=== PATIENT | female | born 1980 | race Caucasian/White ===

== ENCOUNTER → 2022-07-06 10:34 | Outpatient (CLI) | payer BC, SELFPAY ==
--- NOTE | ~2022-07-06 | MM_ITS ---
EXAMINATION: MM screening ivan BI w juan david HISTORY: Screening mammogram TECHNIQUE: Craniocaudal and mediolateral oblique 3-D tomosynthesis images were obtained and synthetic 2-D images were generated. CAD analysis was submitted and interpreted. COMPARISON: None, baseline BREAST PARENCHYMAL COMPOSITION: The breasts are extremely dense, which lowers the sensitivity of mamm ography. FINDINGS: No suspicious mass, calcification, or architectural distortion are identified in either elba ast to suggest malignancy. IMPRESSION: 1. No mammographic evidence of malignancy. 2. Recommend routine screening mammography in one year. BI-RADS Category 1: Negative Reviewed, dictated and finalized at location A.
== END ==
PROVIDERS: PCP Physician Assistant Medical; Visit Provider Advanced Practice Midwife
DX: Z12.31 Encounter for screening mammogram for malignant neoplasm of breast (principal)
CPT/HCPCS: 77063; 77067

== ENCOUNTER 2022-11-11 14:58 | Outpatient (CLI) | payer BC, SELFPAY ==
--- NOTE | ~2022-11-11 | MMUS_ITS ---
EXAMINATION: MM diagnostic ivan BI w juan david, US breast BI complete HISTORY: Left breast lump TECHNIQUE: Bilateral full field and spot ML, MLO and CC 3-D tomosynthesis images were performed and s ynthetic 2-D images were generated. CAD analysis was submitted and interpreted. High resolution compl ete bilateral breast ultrasound examination including all 4 quadrants and subareolar areas was perfor med. COMPARISON: 07/06/2022 bilateral screening mammogram BREAST PARENCHYMAL COMPOSITION: The breasts are extremely dense, which lowers the sensitivity of mamm ography. FINDINGS: MAMMOGRAPHIC FINDINGS: Extremely dense fibroglandular stroma throughout both breasts reduces the sensitivity examination for masses. No architectural distortion, malignant calcification, skin thickening or retraction of either breast is detected. ULTRASOUND: No suspicious mass or shadowing of either breast or significant abnormal vascularity is e vident. There are bilateral breast cysts as listed below: Right breast: 3:00 2 cm from nipple: 3 x 4.6 x 4.7 mm cyst 4:00 2 cm from nipple: 2.6 x 2.2 x 3.4 mm cyst 4:00 2 cm from nipple: 4.7 x 4.2 x 2.6 mm multi septated cyst 10:00 3 cm from nipple: 3.7 x 5.1 x 2.1 mm cyst Left breast: 2:00 6 cm from nipple: 4.4 x 2.5 x 4 mm cyst 2:00 2 cm from nipple: 2.8 x 1.5 x 3.1 m cysts Subareolar area: 2.4 x 1.9 x 2.7 mm cyst IMPRESSION: 1. Bilateral benign breast cysts 2. Routine mammographic screening is recommended, with consideration for supplemental ultrasound give n the very dense fibroglandular stroma. BI-RADS Category 2: Benign finding(s). Reviewed, dictated and finalized at location A. [employer] IMPRESSION: 1. Bilateral benign breast cysts 2. Routine mammographic screening is recommended, with consideration for supple mental ultrasound given the very dense fibroglandular stroma. BI-RADS Category 2: Benign finding(s).
== END 2022-11-11 14:59 ==
PROVIDERS: PCP Physician Assistant Medical; Visit Provider Nurse Practitioner
DX: N63.0 Unspecified lump in unspecified breast (principal)
CPT/HCPCS: 76641; 77062; 77066; G0279